=== PATIENT | male | born 1980 | race Caucasian/White ===

== ENCOUNTER 2024-04-05 13:29 | Emergency (ER) | payer OTHER ==
[2024-04-05 14:01] VITALS: PULSE 72; RESP 20; TEMP 98.7
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
[2024-04-05] MEDS: Sodium Chloride 0.9% 1000 ML 1,000 ML IV STA (14:28)
[2024-04-05] MEDS ORDERED: Sodium Chloride 0.9% 1000 ML 1,000 ML ONE (14:28)
[2024-04-05 14:42] LABS: Absolute Neutrophil Ct (ANC) 5.89 x10^3/uL (1.78-5.38); BASOPHIL % 0.7 % (0.2-1.2); Basophil (Absolute #) 0.06 x10^3/uL (0.01-0.08); Eosinophil % 2.3 % (0.8-7.0); Eosinophil (Absolute #) 0.21 x10^3/uL (0.04-0.54); Hematocrit 48.2 % (40.1-51.0); IMMATURE GRAN # 0.02 x10^3u/L (0.001-0.031); IMMATURE GRAN % 0.2 % (0.001-0.429); Lymphocyte (Absolute #) 1.85 x10^3/uL (1.32-3.57); Lymphocytes % 20.6 % (21.8-53.1); Mean Cell Volume 92.9 fL (79.0-92.2); Mean Corpuscular Hemoglobin 30.8 pg (25.7-32.2); Mean Corpuscular Hgb Concent. 33.2 g/dL (32.3-36.5); Mean Platelet Volume 11.1 fL (9.4-12.4); Monocyte (Absolute #) 0.96 x10^3/uL (0.30-0.82); Monocytes % 10.7 % (5.3-12.2); Neutrophil % 65.5 % (34.0-67.9); Platelet Count 277 x10^3/uL (163-337); Red Blood Count 5.19 x10^6/uL (4.63-6.08); Red Cell Distribution Width 13.9 % (11.6-14.4)
[2024-04-05 14:44] LABS: ALBUMIN 4.4 g/dL (3.5-5.0); ANION GAP 11.7 MEQ/L (5-15); BILIRUBIN,TOTAL 0.3 mg/dL (0.2-1.3); Calcium 9.5 mg/dL (8.4-10.2); Creatinine 1 0.82 mg/dL (0.66-1.25); EST GLOMERULAR FILTRATION RATE 113.2 ML/MIN; Potassium 4.5 mmol/L (3.5-5.1); Total Protein 7.5 g/dL (6.3-8.2)
[2024-04-05 14:47] LABS: Appearance Clear (Clear); Bacteria None Seen /HPF (None Seen); Bilirubin Negative (Negative); Blood Negative (Negative); Epithelial Cells None Seen /HPF (None Seen); Glucose, Urine Negative (Negative); Hyaline Casts NONE SEEN /LPF (0-2); Ketones Negative (Negative); Leukocyte Esterase Trace (Negative); Nitrite Negative (Negative); Protein,Urine Dip Negative (Negative); RBC 0-2 /HPF (0-5); Specific Gravity <=1.005 (1.005-1.030); Urobilinogen 0.2 mg/dL (0.2)
[2024-04-05 14:50] LABS: ADD URINE CULTURE? NO (NO)
--- NOTE | 2024-04-05 16:40 | XRAY ---
Indication: Abdominal pain. Multiple contiguous axial images obtained through the abdomen and pelvis using 80 cc Isovue-370 contrast as ordered. Comparison: None Lung bases clear. Heart not enlarged. Noncontrasted stomach and bowel loops appear nonobstructed. Appendix not visualized. Moderate diffuse fecal stasis throughout including rectum. Markedly distended urinary bladder concerning for outlet obstruction versus neurogenic bladder. Numerous tiny gallstones. No free fluid/air. Remaining liver, pancreas, spleen, adrenal glands, kidneys, ureters, bladder, and aorta are unremarkable. No pathologic retroperitoneal lymphadenopathy. Osseous structures intact with bilateral L5 spondylolysis and 1 cm anterolisthesis. Impression: 1. Moderate diffuse fecal stasis. 2. Abnormal markedly distended urinary bladder. Rule out outlet obstruction versus neurogenic bladder. 3. Chronic findings including cholelithiasis and L5 spondylolysis with grade 2 listhesis.
[2024-04-05] MEDS ORDERED: ROCEPHIN 1 GM / 100 ML NaCl 1 GM/100 ML IVPB IV ONE (17:27)
[2024-04-05] MEDS: ROCEPHIN 1 GM / 100 ML NaCl 1 GM/100 ML IVPB IV ONE (17:34)
[2024-04-05 19:43] VITALS: BP 155/100; O2SAT 98
== END 2024-04-05 19:44 | disposition home or self-care (01) ==
LOC: ED 13:29
DX: K59.00 Constipation, unspecified (principal); R33.9 Retention of urine, unspecified; R10.9 Unspecified abdominal pain; Z79.899 Other long term (current) drug therapy; Z72.0 Tobacco use
CPT/HCPCS: 36000; 36415; 74177; 80053; 81001; 82150; 83690; 85025; 96360; 96365; 99284; J0696